=== PATIENT | female | born 1995 | race Caucasian/White ===

== ENCOUNTER 2021-12-28 16:03 | Emergency (ER) | payer OTHER, SELFPAY ==
[2021-12-28 16:15] VITALS: BP 121/63; PULSE 67; RESP 18; TEMP 36.6; O2SAT 100; BMI 32.5
[2021-12-28 17:45] LABS: HCG Quantitative /Beta subunit < 2.4 mIU/mL
[2021-12-28] MEDS: KETOROLAC 30 MG/ML VIAL 15 MG IV (18:44)
[2021-12-28] MEDS: diphenhydrAMINE 25 MG TABLET PO (18:44)
[2021-12-28] MEDS: ACETAMINOPHEN 325 MG TABLET 975 MG PO (18:44)
[2021-12-28] MEDS: DEXAMETHASONE 10 MG/ML VIAL PO (18:45)
[2021-12-28] MEDS: METOCLOPRAMIDE HCL 10 MG TABLET PO (18:49)
[2021-12-28 19:17] VITALS: BP 121/64; PULSE 75; RESP 16; O2SAT 97
--- NOTE | 2021-12-28 20:07 | ED.HA ---
HPI - Headache <JONATHAN Glasgow - Last Filed: 12/28/21 20:11> General Chief Complaint: Headache Stated Complaint: migraine,seeing black spots, 3rd day Time Seen by Provider: 12/28/21 17:48 Mode of arrival: Ambulatory History of Present Illness HPI Narrative: 25-year-old female presents to the emergency department for a migraine. Patient states that she has a history of migraines, this current migraine has lasted for 3 days, she takes sumatriptan, she states she took a p.o. sumatriptan this morning it did not help her. She denies taking any ibuprofen today or other medications. She states that she has had some black spots in her vision but this has happened before. She states that this headache is typical for her normal migraine. She states that she is trying to get , would like medication for her migraine but wants to ensure that she is . She denies any weakness, incontinence, neck pain, fever, or any other symptom. Related Data Allergies Allergy/AdvReac Type Severity Reaction Status Date / Time Penicillins Allergy Severe Anaphylaxis Verified 12/28/21 16:18 Review of Systems <JONATHAN Glasgow - Last Filed: 12/28/21 20:11> Review of Systems Narrative: General: denies fever, chills, malaise, sweats, fatigue Head/Neck: Endorses headache, denies neck pain, dizziness Eyes: denies visual changes, eye pain Cardio: denies chest pain, palpitations, edema Respiratory: denies dyspnea, cough, orthopnea GI: denies abdominal pain, nausea, vomiting, or diarrhea : denies dysuria, hematuria, urinary retention, frequency or incontinence MSK: denies joint pain, muscle weakness Skin: denies rash, itching, skin lesions or other Neuro: denies numbness, tingling Patient History <JONATHAN Glasgow - Last Filed: 12/28/21 20:11> Social History Smoking Status: Never smoker Smoking Status: Never smoker alcohol intake frequency: a few times a month Substance Use Type: marijuana Exam <JONATHAN Glasgow - Last Filed: 12/28/21 20:11> Narrative Exam Narrative: Independently reviewed vitals signs and nursing notes. General: cooperative, comfortable, in no acute distress, well developed and well groomed Head: atraumatic, symmetrical facial expressions Neck: supple, atraumatic, without lymphadenopathy. Eyes: pupils equal round and reactive, EOMI, conjunctiva normal Nose: nares patent, no rhinorrhea Mouth/Throat: moist mucus membranes Cardiovascular: regular rate and rhythm, no peripheral edema, warm extremities Respiratory: normal effort, able to speak in complete sentences, no audible wheezing, stridor, or rales. No retractions or tachypnea. MSK: moves all extremities, ambulatory w/steady gait, neurovascularly intact, no weakness Skin: brisk capillary refill, no rash, no erythema Neuro: normal speech and cognition, A&O x3, normal tone Psych: mental status is grossly normal, congruent mood, normal affect, pleasant and cooperative Initial Vital Signs Initial Vital Signs: Vital Signs Temperature 97.8 F 12/28/21 16:15 Pulse Rate 67 12/28/21 16:15 Respiratory Rate 18 12/28/21 16:15 Blood Pressure 121/63 12/28/21 16:15 Pulse Oximetry 100 12/28/21 16:15 <Regine Rosa DO - Last Filed: 12/29/21 06:58> Initial Vital Signs Initial Vital Signs: Vital Signs Temperature 97.8 F 12/28/21 16:15 Pulse Rate 67 12/28/21 16:15 Respiratory Rate 18 12/28/21 16:15 Blood Pressure 121/63 12/28/21 16:15 Pulse Oximetry 100 12/28/21 16:15 Course <JONATHAN Glasgow - Last Filed: 12/28/21 20:11> Orders Ordered: Discontinued Medications Acetaminophen (Acetaminophen 325 Mg Tablet) 975 mg PO NOW ONE Stop: 12/28/21 17:50 Last Admin: 12/28/21 18:44 Dose: 975 mg Documented by: AUPDIKE Dexamethasone (Dexamethasone 10 Mg/Ml Vial) 10 mg IV NOW ONE Stop: 12/28/21 17:49 Last Admin: 12/28/21 18:53 Dose: Not Given Documented by: KBROTEM Dexamethasone (Dexamethasone 10 Mg/Ml Vial) 10 mg PO NOW ONE Stop: 12/28/21 18:15 Last Admin: 12/28/21 18:45 Dose: 10 mg Documented by: ALESSANDRO Diphenhydramine HCl (Diphenhydramine 50 Mg/Ml Vial) 25 mg IV NOW ONE Stop: 12/28/21 17:49 Last Admin: 12/28/21 18:53 Dose: Not Given Documented by: ENRIKE Diphenhydramine HCl (Diphenhydramine 25 Mg Tablet) 25 mg PO NOW ONE Stop: 12/28/21 18:15 Last Admin: 12/28/21 18:44 Dose: 25 mg Documented by: ALESSANDRO Sodium Chloride (Normal Saline 0.9%) 1,000 mls @ 1,000 mls/hr IV BOLUS ONE Stop: 12/28/21 18:47 Last Admin: 12/28/21 18:45 Dose: Not Given Documented by: ALESSANDRO Ketorolac Tromethamine (Ketorolac 30 Mg/Ml Vial) 15 mg IV NOW ONE Stop: 12/28/21 17:49 Last Admin: 12/28/21 18:44 Dose: 15 mg Documented by: ALESSANDRO Metoclopramide HCl (Metoclopramide 10 Mg/2 Ml Inj) 10 mg IV NOW ONE Stop: 12/28/21 17:49 Last Admin: 12/28/21 18:53 Dose: Not Given Documented by: ENRIKE Metoclopramide HCl (Metoclopramide Hcl 10 Mg Tablet) 10 mg PO NOW ONE Stop: 12/28/21 18:15 Last Admin: 12/28/21 18:49 Dose: 10 mg Documented by: ALESSANDRO Vital Signs Vital signs: Vital Signs - 8 hr 12/28/21 16:15 12/28/21 19:17 Temperature 97.8 F Pulse Rate 67 75 Respiratory Rate 18 16 Blood Pressure 121/63 121/64 Pulse Oximetry 100 97 <Regine Rosa, - Last Filed: 12/29/21 06:58> Orders Ordered: Discontinued Medications Acetaminophen (Acetaminophen 325 Mg Tablet) 975 mg PO NOW ONE Stop: 12/28/21 17:50 Last Admin: 12/28/21 18:44 Dose: 975 mg Documented by: ALESSANDRO Dexamethasone (Dexamethasone 10 Mg/Ml Vial) 10 mg IV NOW ONE Stop: 12/28/21 17:49 Last Admin: 12/28/21 18:53 Dose: Not Given Documented by: ENRIKE Dexamethasone (Dexamethasone 10 Mg/Ml Vial) 10 mg PO NOW ONE Stop: 12/28/21 18:15 Last Admin: 12/28/21 18:45 Dose: 10 mg Documented by: ALESSANDRO Diphenhydramine HCl (Diphenhydramine 50 Mg/Ml Vial) 25 mg IV NOW ONE Stop: 12/28/21 17:49 Last Admin: 12/28/21 18:53 Dose: Not Given Documented by: ENRIKE Diphenhydramine HCl (Diphenhydramine 25 Mg Tablet) 25 mg PO NOW ONE Stop: 12/28/21 18:15 Last Admin: 12/28/21 18:44 Dose: 25 mg Documented by: ALESSANDRO Sodium Chloride (Normal Saline 0.9%) 1,000 mls @ 1,000 mls/hr IV BOLUS ONE Stop: 12/28/21 18:47 Last Admin: 12/28/21 18:45 Dose: Not Given Documented by: ALESSANDRO Ketorolac Tromethamine (Ketorolac 30 Mg/Ml Vial) 15 mg IV NOW ONE Stop: 12/28/21 17:49 Last Admin: 12/28/21 18:44 Dose: 15 mg Documented by: ALESSANDRO Metoclopramide HCl (Metoclopramide 10 Mg/2 Ml Inj) 10 mg IV NOW ONE Stop: 12/28/21 17:49 Last Admin: 12/28/21 18:53 Dose: Not Given Documented by: ENRIKE Metoclopramide HCl (Metoclopramide Hcl 10 Mg Tablet) 10 mg PO NOW ONE Stop: 12/28/21 18:15 Last Admin: 12/28/21 18:49 Dose: 10 mg Documented by: ALESSANDRO Vital Signs Vital signs: Vital Signs - 8 hr 12/28/21 16:15 12/28/21 19:17 Temperature 97.8 F Pulse Rate 67 75 Respiratory Rate 18 16 Blood Pressure 121/63 121/64 Pulse Oximetry 100 97 MDM - Headache <JONATHAN Glasgow - Last Filed: 12/28/21 20:11> Lab Data Labs: Lab Results 12/28/21 Range/Units 16:51 HCG, Quant < 2.4 mIU/mL Point of Care Testing Test Results Negative MDM Narrative Medical decision making narrative: This is a 25-year-old female with a history of migraines who presents To the emergency department for a migraine and concern for . She states that this is typical for her migraines, she is use 4 doses of her p.o. sumatriptan at home over the last 10 days. She has had a migraine for the last 3 days, today with some black spots in her vision but this is happened her before. Patient states that she takes Wellbutrin, magnesium, and sumatriptan for her migraines. Today her urine was negative, patient wanted an hCG quant because she states she is trying to get , hCG quant was less than 2.4. Patient refused an IV and IV fluids for her migraine treatment. She was given IM Toradol, p.o. Reglan, dexamethasone, Benadryl, and Tylenol. She states that this is adequate to help her symptoms and is requesting discharge. Headache considerations include, but not limited to: Subarachnoid hemorrhage, but unlikely as patient denies sudden onset of pain, not worst of life, or neck pain Meningitis considered, but thought unlikely given lack of Brudzinski's, Kernig's sign, altered mental status or fever Giant cell arteritis considered, but thought unlikely given lack of unilateral findings, pain in buddhist, vision change HTN Emergency considered, but thought unlikely given normal vitals Other serious diagnoses considered unlikely given lack of red flag findings such as sudden onset, increasing frequency, immunocompromise, systemic signs (fever, chills, stiff neck, or rash), focal neurologic findings, trauma, blood thinners, etc. Patient understands to follow-up with her primary care provider about her migraines, states that this is not an abnormal occurrence for her. Patient is appropriate and amenable to discharge home. Vital signs are stable on repeat examination is unremarkable. Patient has been informed of results. Patient has been given strict return to ER precautions for any new or worsening symptoms. Patient understands to follow up closely with outpatient providers as instructed. Patient understands plan and agrees to discharge home. All questions and concerns answered at this time. <Regine Rosa, DO - Last Filed: 12/29/21 06:58> Lab Data Labs: Lab Results 12/28/21 Range/Units 16:51 HCG, Quant < 2.4 mIU/mL Point of Care Testing Test Results Negative Discharge Plan Departure Patient Disposition: Home Clinical Impression: Migraine Instructions: DI for Migraine Activity Restrictions/Additional Instructions: *You have been diagnosed with migraine headache. Please take your regularly scheduled medications, try to stay hydrated, take a multivitamin, try not to drink purely water, please consider electrolyte liquids as well. Eat a diet with a variety of foods so that you get all of your nutrients. Please take Tylenol or ibuprofen as needed for ongoing headache, you can add on your migraine medication if needed tomorrow. I hope that you start feeling better, if you are still having a migraine, please follow-up with your primary care provider. Thank you for trusting us with your care. *What to do: *Please continue to take your regular medications as directed. [ ] New medication prescriptions sent to your pharmacy: [ ] [ ] New medication written as a paper prescription [x ] No new medications given *Please follow up with your primary care provider in 2-3 days, call for an appointment. Let them know you were seen in the Emergency Department and that we asked that you be seen for follow-up. We will electronically transmit a record of today's note if your PCP is in our system *If you do not have a primary care provider please contact [phone] to establish care with one of [facility] primary care providers. *Return to Emergency Department if you should have any new, worsening or concerning symptoms, such as [fever greater than 101F, chills, worsening pain, persistent vomiting or other bothersome symptoms] Referrals: Mayelin Mancini MD [Primary Care Provider] - <Regine Rosa DO - Last Filed: 12/29/21 06:58> [facility] Elanature Attestation: I was immediately available in the department for consultation. Documentation has been reviewed. I agree with assessment and plan.
== END 2021-12-28 19:17 | disposition home or self-care (01) ==
PROVIDERS: Emergency Provider Nurse Practitioner Critical Care Medicine; PCP Internal Medicine
DX: G43.909 Migraine, unspecified, not intractable, without status migrainosus (principal)
CPT/HCPCS: 36415; 81025; 84702; 96374; 99283; 99284; J1100; J1885

== ENCOUNTER 2022-05-07 08:33 | Emergency (ER) | payer OTHER, SELFPAY ==
--- NOTE | 2022-05-07 08:44 | DI.US.S_ITS ---
PROCEDURE: US OB LIMITED INDICATIONS: BLEEDING OUTSIDE/PRIOR DATING DATA: Last menstrual period (LMP): 12/30/2019. LMP-based estimated date of delivery (MEGAN): 10/05/2022. First dating scan (date and location): Unavailable. Estimated date of delivery (MEGAN) from first dating scan: Unavailable. The calculations are made using the LMP MEGAN of 10/05/2022. TECHNIQUE: Real-time scanning was performed of the fetus, with image documentation. Endovaginal scanning: Not performed COMPARISON: None. FINDINGS: A single living intrauterine gestation is present. Presentation: Breech. Placenta: Placental position is anterior and fundal, without previa. Amniotic fluid index: 16.7 cm, normal range is 5-24 cm. Single deepest vertical pocket is 5.8 cm. heart rate: 153 beats per minute. Maternal cervical canal: 3.2 cm long. Normal lower limit is 2.5 cm. Clinically estimated gestational age: Not calculated Estimated gestational age from LMP: 18 weeks 3 days. IMPRESSION: Living 2nd trimester intrauterine with no sonographic evidence of complications. Limited imaging obtained for viability and evaluation for possible causes of bleeding. Dictated by: Dom Gutierrez M.D. on 05/07/2022 at 9:59 Approved by: Dom Gutierrez M.D. on 05/07/2022 at 10:02
[2022-05-07 08:51] VITALS: BP 115/82; PULSE 82; RESP 16; TEMP 36.9; O2SAT 99; BMI 32.2
[2022-05-07 08:55] LABS: Add Manual Diff / Slide Review NO; Basophils Absolute Auto 0 /uL (0-100); Basophils Percent Auto 0.3 % (0-2); Eosinophils Absolute Auto 100 /uL (0-450); Eosinophils Percent Auto 0.9 % (2-4); Hematocrit 33.4 % (36-46); Hemoglobin 11.7 g/dL (12.0-16.0); Lymphocytes Absolute Auto 1700 /uL (1100-4500); Lymphocytes Percent Auto 22.9 % (25-40); Mean Corpuscular HGB Conc 34.9 % (30-36); Mean Corpuscular Hemoglobin 30.1 PG (26-34); Mean Corpuscular Volume 86.2 fL (80-100); Monocytes Absolute Auto 500 /uL (0-900); Monocytes Percent Auto 6.6 % (3-14); Neutrophils Absolute Auto 5300 /uL (1500-7000); Neutrophils Percent Auto 69.3 % (50-75); Platelet Count 181 X10^3/uL (150-400); Red Blood Cell Count 3.87 X10^6/uL (4.0-5.2); Red Cell Distribution Width 13.2 % (11.6-14.8); White Blood Cell Count 7.6 X10^3/uL (4.5-11.0)
--- NOTE | 2022-05-07 09:04 | ED_ITS ---
HPI - General Chief complaint: OB/Uterine Contractions Stated complaint: 19 wks , Severe ABD pain Time Seen by Provider: 05/07/22 08:44 History of Present Illness HPI Narrative: Patient is a 26-year-old female currently 19 weeks presenting with lower abdominal pain and some vaginal bleeding. 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 She states she has previously had placenta previa she has had multiple miscarriages but nothing later than 10 weeks. She reports no placenta previa during this . She has been feeling nauseous is but no significant vomiting. Pain is more on the right side but actually radiate or around to the left. She noted some brown bloody discharge is and has had to change her pad twice. Related Data Allergies Allergy/AdvReac Type Severity Reaction Status Date / Time Penicillins Allergy Severe Anaphylaxis Verified 12/28/21 16:18 Review of Systems Review of Systems Narrative: GENERAL: Denies chills, fatigue, malaise, fever, sweats, travel HEENT: Denies sinus pain, ear pain, sore throat, difficulty swallowing, neck pain RESPIRATORY: Denies dyspnea, cough, wheezing, hemoptysis, sputum. CARDIOVASCULAR: Denies chest pain, palpitations, orthopnea, edema GASTROINTESTINAL: Denies nausea, vomiting, abdominal pain, diarrhea, constipation, melena. : Denies dysuria, frequency, incontinence, hematuria, urinary retention, flank pain. 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 12 point review of systems is negative except for those stated above and HPI Exam Initial Vital Signs Initial Vital Signs: Vital Signs Temperature 98.4 F 05/07/22 08:51 Pulse Rate 82 05/07/22 08:51 Respiratory Rate 16 05/07/22 08:51 Blood Pressure 115/82 05/07/22 08:51 Pulse Oximetry 99 05/07/22 08:51 Oxygen Delivery Method 05/07/22 08:51 GENERAL: Alert 26-year-old female and in no acute distress. HEENT: Head atraumatic,EOMI, pupils reactive, face symmetric, moist mucous membranes CARDIOVASCULAR: Regular rate and rhythm without murmurs, rubs or gallops. RESPIRATORY: Breath sounds equal bilaterally, no wheezes rales or rhonchi. ABDOMEN: Soft, that tender lower abdomen more than left : No CVA tenderness EXTREMITIES: Normal range of motion, no clubbing or edema. Neurovascularly intact NEUROLOGICAL: Alert and oriented x4. SKIN: Warm, dry, no laceration, no petechiae, no rashes or lesions. Course Orders Ordered: ED Orders 05/07/22 08:44 US OB limited Stat 05/07/22 08:48 ABO RH Type Stat CBC Auto Diff [Complete Blood Count AUTO DIFF] Stat CMP [Comprehensive Metabolic Panel] Stat Discontinued Medications Acetaminophen (Acetaminophen 325 Mg Tablet) 975 mg PO NOW ONE Stop: 05/07/22 08:45 Last Admin: 05/07/22 09:15 Dose: 975 mg Documented By: DL Sodium Chloride (Normal Saline 0.9%) 1,000 mls @ 1,000 mls/hr IV BOLUS ONE Stop: 05/07/22 09:43 Last Admin: 05/07/22 09:16 Dose: 1,000 mls/hr Documented By: DL Ondansetron HCl (Ondansetron 4 Mg/2 Ml Inj) 4 mg IV NOW ONE Stop: 05/07/22 08:45 Last Admin: 05/07/22 09:15 Dose: 4 mg Documented By: DL Vital Signs Vital signs: Vital Signs - 8 hr 05/07/22 08:51 05/07/22 10:20 Temperature 98.4 F Pulse Rate 82 58 L Respiratory Rate 16 12 Blood Pressure 115/82 105/54 L Pulse Oximetry 99 99 Oxygen Delivery Method Room Air Room Air MDM - OB/Uterine Contractions Lab Data Result diagrams: 05/07/22 08:48 05/07/22 08:48 Labs: Lab Results 05/07/22 05/07/22 05/07/22 Range/Units 08:48 08:48 08:48 WBC 7.6 (4.5-11.0) X10^3/uL RBC 3.87 L (4.0-5.2) X10^6/uL Hgb 11.7 L (12.0-16.0) g/dL Hct 33.4 L (36-46) % MCV 86.2 (80-100) fL MCH 30.1 (26-34) PG MCHC 34.9 (30-36) % RDW 13.2 (11.6-14.8) % Plt Count 181 (150-400) X10^3/uL Neut % (Auto) 69.3 (50-75) % Lymph % (Auto) 22.9 L (25-40) % [place] % (Auto) 6.6 (3-14) % Eos % (Auto) 0.9 L (2-4) % Baso % (Auto) 0.3 (0-2) % Neut # (Auto) 5300 (9078-1308) /uL Lymph # (Auto) 1700 (8599-3843) /uL [place] # (Auto) 500 (0-900) /uL Eos # (Auto) 100 (0-450) /uL Baso # (Auto) 0 (0-100) /uL Sodium 135 L (137-145) mmol/L Potassium 3.9 (3.4-5.1) mmol/L Chloride 107 (98-107) mmol/L Carbon Dioxide 22 (22-32) mmol/L BUN 9 (7-17) mg/dL Creatinine 0.54 (0.52-1.04) mg/dL Estimated GFR > 60 (>60) mL/min BUN/Creatinine Ratio 16.7 (6-22) Glucose 86 (70-100) mg/dL Calcium 8.7 (8.4-10.2) mg/dL Total Bilirubin 0.3 (0.2-1.3) mg/dL AST 16 (14-36) IU/L ALT 11 (<35) IU/L Alkaline Phosphatase 41 (38-126) U/L Total Protein 7.1 (6.3-8.2) g/dL Albumin 3.9 (3.5-5.0) g/dL Globulin 3.2 (1.7-4.1) g/dL Albumin/Globulin Ratio 1.2 (1.0-2.8) Blood Type A Positive Urine Dip Bedside Urine Glucose Negative Bedside Urine Bilirubin - Negative Bedside Urine Ketone - Negative Urine Specific [facility] 1.03 Bedside Urine Occult Blood - Negative Bedside Urine pH 6.0 Bedside Urine Protein - Negative Bedside Urine Urobilinogen - Negative Bedside Urine Nitrite - Negative Bedside Urine Leukocytes - Negative Esterase Imaging Data US - OB: Radiologist's Impression: Signed Patient: Randa Olivares MR#: [id number] : 1995 Acct:[id number] Age/Sex: 26 / F Date of Service: 05/07/22 Loc: Accession Number: [id number] ?? Procedure: US OB limited Ordering Provider: Regine Rosa D.O. PROCEDURE:? US OB LIMITED ? INDICATIONS:? BLEEDING ? OUTSIDE/PRIOR DATING DATA:? Last menstrual period (LMP):? 12/30/2019.? LMP-based estimated date of delivery (MEGAN):? 10/05/2022.? First dating scan (date and location):? Unavailable.? Estimated date of delivery (MEGAN) from first dating scan:? Unavailable. The calculations are made using the LMP MEGAN of 10/05/2022.? ? TECHNIQUE: Real-time scanning was performed of the fetus, with image documentation.? Endovaginal scanning:? Not performed ? COMPARISON:? None. ? FINDINGS:? A single living intrauterine gestation is present.? Presentation:? Breech.? Placenta:? Placental position is anterior and fundal, without previa.? ? Amniotic fluid index:? 16.7 cm, normal range is 5-24 cm. Single deepest vertical pocket is 5.8 cm.? ? heart rate:? 153 beats per minute.? Maternal cervical canal:? 3.2 cm long.? Normal lower limit is 2.5 cm.? Clinically estimated gestational age:? Not calculated Estimated gestational age from LMP:? 18 weeks 3 days.? ? ? IMPRESSION:? Living 2nd trimester intrauterine with no sonographic evidence of complications.? Limited imaging obtained for viability and evaluation for possible causes of bleeding. ? ? Dictated by: Dom Gutierrez M.D. on 05/07/2022 at 9:59 ? ? MDM Narrative Medical decision making narrative: Patient is currently 18 weeks and 3 days with some slight vaginal bleeding. She denies any recent intercourse. Urine is negative for any infection. Ultrasound confirms healthy IUP. At this time recommend outpatient follow-up with her OBGYN. She is also Rh positive no need for RhoGAM.. Discharge Plan Departure Patient Disposition: Home Clinical Impression: Hemorrhage Instructions: DI for Vaginal Bleeding During Activity Restrictions/Additional Instructions: *You have been diagnosed with 2nd trimester bleeding measuring 18 weeks and 3 days *What to do: At this time baby appears healthy. Blood work is reassuring no sign of infection. Please follow-up with your OBGYN *Continue to take medications as directed *Follow up with your primary care provider in 2-3 days or call [phone] Call your OBGYN tomorrow *Return to ER if you should have bright red blood, clots abdominal cramping, or any new, worsening or concerning symptoms Referrals: Mayelin Mancini MD [Primary Care Provider] - Visit Report Forms: Patient Portal/API
[2022-05-07 09:07] LABS: Alanine Aminotransferase 11 IU/L (<35); Albumin 3.9 g/dL (3.5-5.0); Albumin Globulin Ratio 1.2 (1.0-2.8); Alkaline Phosphatase 41 U/L (38-126); Aspartate Aminotransferase 16 IU/L (14-36); BUN Creatinine Ratio 16.7 (6-22); Bilirubin Total 0.3 mg/dL (0.2-1.3); Blood Urea Nitrogen 9 mg/dL (7-17); Calcium 8.7 mg/dL (8.4-10.2); Carbon Dioxide 22 mmol/L (22-32); Chloride 107 mmol/L (98-107); Estimated Glomerular Filt Rate > 60 mL/min (>60); Globulin 3.2 g/dL (1.7-4.1); Glucose 86 mg/dL (70-100); HEMOLYSIS < 15 (0-50); Potassium 3.9 mmol/L (3.4-5.1); Sodium 135 mmol/L (137-145); Total Protein 7.1 g/dL (6.3-8.2)
[2022-05-07] MEDS: ONDANSETRON 4 MG/2 ML INJ IV (09:15)
[2022-05-07] MEDS: ACETAMINOPHEN 325 MG TABLET 975 MG PO (09:15)
[2022-05-07] MEDS: SODIUM CHLORIDE 0.9% 1,000 ML 1000 ML IV (09:16)
[2022-05-07 10:20] VITALS: BP 105/54; PULSE 58; RESP 12; O2SAT 99
== END 2022-05-07 10:22 | disposition home or self-care (01) ==
PROVIDERS: Emergency Provider Emergency Medicine; PCP Internal Medicine
DX: O46.92 Antepartum hemorrhage, unspecified, second trimester (principal); Z3A.18 18 weeks gestation of pregnancy
CPT/HCPCS: 36415; 76815; 80053; 81003; 85025; 86900; 86901; 96374; 99284; J2405

== ENCOUNTER 2022-07-15 18:23 | Outpatient (CLI) | payer OTHER, SELFPAY ==
--- NOTE | 2022-07-16 16:18 | PM.OBTRLD ---
Visit Information Visit Information Date of evaluation: 07/15/22 On-call OB Provider: Gabrielle Scott Reason for Evaluation: Yes other Comments/Additional reasons for admission: Patient is a 26-year-old 6 para 2 at 28-,2/7 weeks gestation Elevated blood pressure at home Patient's primary OB is in [place]. Vital Signs Vital Signs: Pressure 107/70 PFSH Social History Smoking Status: Never smoker Evaluation Evaluation Baseline heart rate: 140 Variability: Moderate (11-25) monitor accelerations: Present Monitor Decelerations: Absent Category of Tracing: Reactive Diagnosis, Plan/Disposition Plan/Disposition Plan: Assessment: 26-year-old 6 para 2 at 28-,2/7 weeks gestation Elevated BP at home, normal here Reactive NST Plan: F/U with regular ob as scheduled OB Disposition: home
== END 2022-07-15 19:05 | disposition home or self-care (01) ==
LOC: OB 07-17 08:53
PROVIDERS: PCP Internal Medicine; Referring Provider Obstetrics & Gynecology; Visit Provider Obstetrics & Gynecology
DX: O26.893 Other specified pregnancy related conditions, third trimester (principal); R03.0 Elevated blood-pressure reading, without diagnosis of hypertension; Z3A.28 28 weeks gestation of pregnancy
CPT/HCPCS: 59025; G0378; G0379

== ENCOUNTER 2022-08-11 09:39 | Observation (INO) | payer OTHER, SELFPAY ==
--- NOTE | 2022-08-11 10:03 | P.TNLD_ITS ---
Visit Information Visit Information Date of evaluation: 08/11/22 On-call OB Provider: Danay Nash Reason for Evaluation: Yes non-stress test non-stress test reason: other (Spotting) Vital Signs Vital Signs: Temperature 37.0 blood pressure 118/66 heart rate 109 PFSH Social History Smoking Status: Never smoker Evaluation Evaluation Baseline heart rate: 130 Variability: Moderate (11-25) monitor accelerations: Present Monitor Decelerations: Absent Category of Tracing: Reactive Diagnosis, Plan/Disposition Final Diagnosis (1) 32 weeks gestation of : Status: Acute (2) UTI in : Status: Acute (3) Vaginal bleeding during : Status: Acute Plan/Disposition Plan: 26-year-old at 32 weeks' gestation presenting after 1 episode of spotting when she woke this morning. She had dark blood on her underwear about the size of two quarters. Bleeding has not continued. She is not had intercourse recently. Denies urinary symptoms. She has had some low back pain which is unchanged from baseline. Denies contractions or leaking and reports good movement. Obstetric care is in [place]. NST reactive. UA suspicious for UTI. Will treat with Macrobid and sent for culture. Ultrasound performed today which was reassuring without placenta previa or abruption. Cervix is long and amniotic fluid normal. Follow-up with primary OB. OB Disposition: home
[2022-08-11 11:36] LABS: Appearance Urine UA CLEAR; Bilirubin Urine UA NEGATIVE (NEGATIVE); Color Urine UA YELLOW; Glucose Urine UA NEGATIVE (Negative); Ketones Urine UA 1+ (NEGATIVE); Leukocyte Esterase Urine UA TRACE (NEGATIVE); Nitrite Urine UA NEGATIVE (Negative); Occult Blood Urine UA TRACE-LYSED (Negative); Protein Urine UA 1+ (Negative); Specific Gravity Urine UA >=1.030 (1.000-1.035); Urobilinogen Urine UA 0.2 E.U./dL (0.2)
[2022-08-11 11:37] LABS: RBC Urine 1-5/HPF (0-5/HPF); WBC Urine 5-10/HPF (0-5/HPF)
[2022-08-11 11:38] LABS: Amorphous Sediment Urine 1+; Bacteria Urine Many (>30); Culture Indicated Urine Specimen Cultured; Squamous Epithelial Cell Urine >30 /HPF (0-5/HPF)
--- NOTE | 2022-08-11 12:03 | DI.US.S_ITS ---
PROCEDURE: US OB LIMITED INDICATIONS: bleeding OUTSIDE/PRIOR DATING DATA: Last menstrual period (LMP): 12/29/21 LMP-based estimated date of delivery (MEGAN): 10/05/22. First dating scan (date and location): 05/07/22. Estimated date of delivery (MEGAN) from first dating scan: 10/05/22. The calculations are made using the 1st OB ultrasound MEGAN of 10/05/22. TECHNIQUE: Real-time scanning was performed of the fetus, with image documentation and biometric measurements. Endovaginal scanning: Not performed. COMPARISON: [facility], OB LIMITED, 05/07/2022, 9:08. FINDINGS: General: A single living intrauterine gestation is present. Presentation: Vertex. Placenta: Placental position is right anterior , without previa. Lower placental edge 2 cm or less from internal cervical os qualifies as low lying placenta. Amniotic fluid index: 12.3 cm, normal range is 5-24 cm. Single deepest vertical pocket is 4.4 cm. heart rate: 133 beats per minute. Maternal cervical canal: 3.1 cm long. Normal lower limit is 2.5 cm. Report any funneling of internal cervical os: % of canal length, shape (U or V), width or any U-shaped funneling. biometrics: Biparietal diameter: 8.0 cm, 32 weeks 1 day Head circumference: 30.0 cm, 33 weeks 2 days Abdominal circumference: 27.6 cm, 31 weeks 5 days Femur length: 6.3 cm, 32 weeks 3 days Clinically estimated gestational age: 32 weeks 1 day Composite gestational age from present scan: 32 weeks 3 days Estimated weight and percentile: 1908 g, 38th percentile Other: Not applicable. IMPRESSION: Appropriate interval growth, no sign of placenta previa or placental abruption. We strive to produce accurate, complete, and clear reports of imaging services. To assist us in improving patient care, this report was composed using standard report templates and voice recognition software. Therefore, it may contain abnormal punctuation, insertions and/or omissions. Occasional wrong-word or sound-alike substitutions may occur. Though we review the report and make efforts to correct it, we do recommend that the report be read carefully in proper context to recognize any text inaccuracies. Dictated by: Jonathan Meza M.D. on 08/11/2022 at 13:31 Approved by: Jonathan Meza M.D. on 08/11/2022 at 13:35
[2022-08-11] MEDS: NITROFURANTOIN ER 100 MG CAPSULE PO (12:43)
== END 2022-08-11 12:47 | disposition home or self-care (01) ==
PROVIDERS: Admitting Provider Family Medicine; PCP Internal Medicine; Referring Provider Family Medicine; Visit Provider Family Medicine
DX: O26.853 Spotting complicating pregnancy, third trimester (principal); O23.43 Unspecified infection of urinary tract in pregnancy, third trimester; N39.0 Urinary tract infection, site not specified; Z3A.32 32 weeks gestation of pregnancy
CPT/HCPCS: 59025; 76815; 81001; 87086; G0378; G0379

== ENCOUNTER 2022-09-21 02:32 | Inpatient (IN) | payer OTHER, SELFPAY ==
--- NOTE | 2022-09-21 03:04 | P.HPOB_ITS ---
OB HPI Date/Time Date of admission: 09/21/22 Date Patient Seen: 09/21/22 Time Patient Seen: 03:04 History of Present Condition Chief complaint: LABOR Date of Last Menstrual Period: 12/29/21 Estimated Gestational Age (weeks): 38 : 7 Para: 2 care: good care Dating criteria OB: LMP confirmed by 1st trimester US Obstetrical complications: none Medical complications OB: psychiatric (depression, managed with counseling) External History Prior Pregnancies: SVDx2, Sab x4 : 7 Para: 2 Estimated Date of Delivery: 10/05/22 Narrative: 26 yo presents @ EG 38weeks 0 days reporting regular painful contractions. She received routine care in [place]. She awoke this morning with painful regular contractions and started heading to the hospital but contractions were very frequent and uncomfortable and she felt she would not make it to the hospital and came here since with living in [place], our hospital was closer. She reports that she had a fall to her abdomen 3 days ago on 09/18 and was observed for 24 hours overnight. Patient signed to obtain her medical records. Review of medical and obstetrical history with patient and review of records. has essentially been uncomplicated. She did have the recent fall. In early she had nausea and vomiting and was on antiemetics. She has a history of anxiety and depression, was on Wellbutrin prior to but stopped with . Had depression after her 1st b annalee. Per records, she did have increased depression during this with EPDS score 17. Symptoms were managed with counseling, with patient preferring to stay off medication. She has had anemia ; recently received an iron infusion for hemoglobin 10.1. She had an abnormal 1 hour Glucola. She was unable to attend a 3 hour GTT. Ten days of recording FBS and 2 hour postprandials revealed normal blood glucose levels. Preadmission Labs Last OB Lab Results: Blood Type A Positive 09/21/22 03:06 Antibody Screen Negative 09/21/22 03:06 Hematocrit 28.9 % (36-46) L 09/21/22 03:06 Hemoglobin 9.6 g/dL (12.0-16.0) L 09/21/22 03:06 -: PAP smear: Normal (06/2020) External Labs Blood type OB HPI: A (+) positive -: Antibody screen: negative, HBsAG: negative, HIV: negative, RPR/VDLR: negative, Chlamydia screen: negative, Gonorrhea screen: negative and GBS status: negative -: Rubella: immune HCAB: negative Genetic Screens: Sequential screen: Normal Evaluation Evaluation Baseline heart rate: 120 Variability: Average (6-10) monitor accelerations: Absent Monitor Decelerations: Absent Contraction Frequency (minutes): 2 Uterine Contraction Intensity: Strong/Firm Category of Tracing: Non-reactive Status: Category l Dilation (cm): 5 Effacement (%): 90 Comments: repeat exam by me 30 minutes later due to report of vaginal pressure: /-3, bulgin membranes PFSH Medical History (Updated 09/21/22 @ 06:37 by Leslie Mcguire MD) Anxiety and depression History of PCOS Surgical History (Updated 09/21/22 @ 06:37 by Leslie Mcguire MD) Hx of laparoscopy Social History Smoking Status: Never smoker Meds Home Medications and Allergies Home Medications Medication Instructions Recorded Confirmed Type nitrofurantoin 100 mg PO BID #9 caps 08/11/22 Rx monohydrate/macrocrystals 100 mg capsule (Macrobid) Elemental Iron-90 324 mg PO DAILY 09/21/22 09/21/22 History promethazine 25 mg tablet 25 mg PO 09/21/22 History sumatriptan succinate 6 mg/0.5 mL mg SUBCUT 09/21/22 History subcutaneous pen injector Allergies Allergy/AdvReac Type Severity Reaction Status Date / Time Penicillins Allergy Severe Anaphylaxis Verified 12/28/21 16:18 OB Exam HENMT Head: normal to inspection and normocephalic Resp Effort & Inspection: normal respiratory effort and able to speak in complete sentences Cardio Rate: regular rate Extremities Lower extremity: Yes normal to inspection; No edema Presentation: vertex Objective Labs Result Diagrams: 09/21/22 03:06 Assessment and Plan Assessment and Plan Assessment and Plan narrative: 26 yo presents in active labor with uncomfortable contractions with cervical change. No ruptured membranes. Reports GBS negative screen. Has history of hemorrhage with prior delivery. -Admit - medical records obtained,reviewed - IV placed in routine CBC, type and screen ordered. -Desires natural childbirth, declines any pain medication at this time. Presents with senior computer specialist an S/O accompanying her. -Anticipate - history of PPH, will have Pitocin ready in the room and PPH medication box. Time Spent with Patient Total time spent with greater than 50% in coordination of care (as documented) at patient's floor/unit and/or counseling patient:: Greater than 35 minutes
[2022-09-21 03:28] LABS: Add Manual Diff / Slide Review NO; Basophils Absolute Auto 0 /uL (0-100); Basophils Percent Auto 0.1 % (0-2); Eosinophils Absolute Auto 0 /uL (0-450); Eosinophils Percent Auto 0.5 % (2-4); Hematocrit 28.9 % (36-46); Hemoglobin 9.6 g/dL (12.0-16.0); Lymphocytes Absolute Auto 1700 /uL (1100-4500); Lymphocytes Percent Auto 22.7 % (25-40); Mean Corpuscular HGB Conc 33.1 % (30-36); Mean Corpuscular Hemoglobin 27.7 PG (26-34); Mean Corpuscular Volume 83.6 fL (80-100); Monocytes Absolute Auto 600 /uL (0-900); Monocytes Percent Auto 7.4 % (3-14); Neutrophils Absolute Auto 5300 /uL (1500-7000); Neutrophils Percent Auto 69.3 % (50-75); Platelet Count 158 X10^3/uL (150-400); Red Blood Cell Count 3.46 X10^6/uL (4.0-5.2); Red Cell Distribution Width 14.8 % (11.6-14.8); White Blood Cell Count 7.7 X10^3/uL (4.5-11.0)
[2022-09-21 03:37] LABS: COVID19 -Nasal RAPID Negative (Negative)
--- NOTE | 2022-09-21 04:22 | P.PCNOB_ITS ---
Labor & Delivery Delivery date: 09/21/22 Intrapartal Events: Precipitous Labor < 3 hours Cervical ripening method: none Induction method: none Delivery monitor: external FHT and external uterine Route of delivery: Episiotomy description: None L&D Laceration Description: None Estimated blood loss (mL): 400 Anesthesia Type: None Complications: none Narrative: over an intact perineum. Placenta delivered spontaneously, was intact and had a normal appearing three-vessel cord. She had no perineal or vaginal lacerations. Pt presented with frequent uncomfortable contractions, in active labor. She only desired intermittent FHR auscultation which was done after short EFM tracing obtained showing normal FHR variability and no decelerations.reassuring. At 7 cm she had spontaneous rupture membranes and quickly progressed to compl etely dilated. With 1 push she brought the head through the labia. Bed was thus not broken at this point. She continued to push with the contraction Bringing the head to and head was delivered in a controlled fashion. No nuchal cord was present. With pushing the shoulders did not deliver with ease. Patient's legs placed back in to make Gl[place] position. Anterior shoulder still did not deliver with mild traction with maternal pushing effort. At this time with maternal pushing, Rehman corkscrew maneuver performed and shoulders and infant delivered without difficulty. Mild shoulder dystocia, approximate 1 minute from delivery of head to delivery of infant. A vigorous male was placed on the maternal abdomen. About 1 minute after delivery, placenta gave signs of placental separation with a gush of blood. I recommended proceeding with clamping and cutting cord at this time. Patient had desired to waiting until pulsation stopped. She agreed and cord was clamped and cut. Placenta was not fully at this time but approximately 1 minute later did fully separate and delivered with maternal pushing. She only had a light amount of bleeding after delivery of the placenta. Routine IV Pitocin was started. her bleeding remained light. On inspection she had no obstetrical lacerations, the perineum, vagina, periurethral areas were intact. The cervix palpated to be intact. She was left to recover in good condition. She did have some lightheadedness after delivery but her blood loss had been average. Some routine IV fluids were started, but lightheadedness was felt to be due to using nitrous oxide for labor analgesia and with last few minutes prior to delivery, she was using more frequently and after the contraction due to vaginal pressure too. Her lightheadedness gradually improved. Baby 1: gender: Male Presentation: vertex Position: Right Occiput Anterior Placenta delivery description: Spontaneous Cord Vessel Description: 3 Vessels score (1 min): 9 score (5 min): 9 weight: 7 lb 14.492 oz Plan for aftercare: Routine care
[2022-09-21] MEDS: ACETAMINOPHEN 325 MG TABLET 650 MG PO ×4 (06:11→21:39)
[2022-09-21] MEDS: IBUPROFEN 600 MG TABLET PO ×4 (06:12→21:39)
[2022-09-21] MEDS: ONDANSETRON 4 MG/2 ML INJ IV (06:12)
--- NOTE | 2022-09-21 16:27 | P.PNOB_ITS ---
Subjective - OB Subjective Patient comments: other (feeling some intense uterine cramping, not fully relieved with Ibuprofen. [place] normal) [place] baby status: doing well feeding status: exclusively breast feeding Date Patient Seen: 09/21/22 Time Patient Seen: 16:27 Exam Vital Signs (past 8 hours): Temp 96.5F BP 110/76 P76 RR 17 Narrative Exam Narrative: General: Well-appearing female Abdomen: Soft, nontender, nondistended. Fundus@U, firm, nontender Extremities: Trace pedal edema Objective Labs Result Diagrams: 09/22/22 05:48 Labs: Laboratory Results - last 24 hr 09/21/22 09/21/22 09/21/22 03:06 03:06 03:06 WBC 7.7 RBC 3.46 L Hgb 9.6 L Hct 28.9 L MCV 83.6 MCH 27.7 MCHC 33.1 RDW 14.8 Plt Count 158 Neut % (Auto) 69.3 Lymph % (Auto) 22.7 L [place] % (Auto) 7.4 Eos % (Auto) 0.5 L Baso % (Auto) 0.1 Neut # (Auto) 5300 Lymph # (Auto) 1700 [place] # (Auto) 600 Eos # (Auto) 0 Baso # (Auto) 0 SARS-CoV-2 (PCR) Negative Blood Type A Positive Antibody Screen Negative Assessment & Plan Plan day: 0 plan OB: routine care Comments: PPD 1/2 Offered and will add some oxycodone due to the severe uterine cramping with this being her 3rd delivery. Time Spent With Patient Time: Total time spent is greater than 50% in coordination of care (as documented) at patient's floor/unit and/or counseling patient: Time with patient: less than 15 minutes
[2022-09-21] MEDS: OXYCODONE IR 5 MG TABLET PO ×2 (16:47→21:38)
[2022-09-21] MEDS: LANOLIN OINT 7 GM 1 APPLIC TOP (18:11)
[2022-09-22] MEDS: ACETAMINOPHEN 325 MG TABLET 650 MG PO ×2 (03:13→11:05)
[2022-09-22] MEDS: IBUPROFEN 600 MG TABLET PO ×2 (03:14→08:42)
[2022-09-22] MEDS: OXYCODONE IR 5 MG TABLET PO ×2 (03:14→08:29)
[2022-09-22 06:00] LABS: Add Manual Diff / Slide Review NO; Basophils Absolute Auto 0 /uL (0-100); Basophils Percent Auto 0.5 % (0-2); Eosinophils Absolute Auto 100 /uL (0-450); Eosinophils Percent Auto 1.4 % (2-4); Hematocrit 28.9 % (36-46); Hemoglobin 9.7 g/dL (12.0-16.0); Lymphocytes Absolute Auto 1900 /uL (1100-4500); Lymphocytes Percent Auto 21.7 % (25-40); Mean Corpuscular HGB Conc 33.5 % (30-36); Mean Corpuscular Hemoglobin 28.1 PG (26-34); Mean Corpuscular Volume 83.7 fL (80-100); Monocytes Absolute Auto 600 /uL (0-900); Monocytes Percent Auto 6.9 % (3-14); Neutrophils Absolute Auto 6100 /uL (1500-7000); Neutrophils Percent Auto 69.5 % (50-75); Platelet Count 172 X10^3/uL (150-400); Red Blood Cell Count 3.46 X10^6/uL (4.0-5.2); Red Cell Distribution Width 15.1 % (11.6-14.8); White Blood Cell Count 8.7 X10^3/uL (4.5-11.0)
[2022-09-22 08:29] VITALS: TEMP 35.8
[2022-09-22 08:42] VITALS: TEMP 35.8
--- NOTE | 2022-09-22 11:03 | P.DS_ITS ---
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 She had no rupture membranes at that time. She had received routine care in [place] with essentially an uncomplicated . She did have a fall 2 days prior with hitting to her abdomen and was monitored for over 24 hours at that time. She came to our hospital due to further distance [facility], with the uncertainty that she would make it there with the intensity of the contractions. She had spontaneous rupture membranes at 7 cm And progressed to complete. She progressed in less than 2 hours. She used nitrous oxide for analgesia. She had a spontaneous vaginal delivery over an intact perineum of a viable male infant with Apgars of 9 and 9. Infant's weight was 7 lb 15 oz . She did not have any perineal lacerations. She has had a normal course. Her bleeding after delivery was normal and she reports continued normal lochia now on day 1. Her H/ H today is the same as on admission, hemoglobin 9.7. She reports feeling well, denies any problems. She has used some oxycodone due to severe uterine cramping, consistent with multiparity and after discussion desires a few pills to continue the next 1-2 days at home. No other problems. She is without problems. She has had a normal course. Since I am finishing this week and will not be here for a visit, she prefers to follow-up with the sous chef kitchen manager she was seen in [place] for her visit, rather than see a new physician, stranger here for her visit. She is already scheduled for that visit. Peripartum Data Infant Delivery Method: Natural Vaginal Laceration Description: None Episiotomy description: None complications: none 1: Gender: Male Disposition of : home Status at Discharge Cognitive/behavioral status at discharge: oriented Functional status at discharge: independent ambulation Overall status at discharge: patient is back to baseline Time Spent with Patient Time attestation: Total time spent providing and/or coordinating discharge services: Time spent: Less than 30 minutes Objective Labs Result Diagrams: 09/22/22 05:48 Labs: Laboratory Results - last 24 hr 09/22/22 05:48 WBC 8.7 RBC 3.46 L Hgb 9.7 L Hct 28.9 L MCV 83.7 MCH 28.1 MCHC 33.5 RDW 15.1 H Plt Count 172 Neut % (Auto) 69.5 Lymph % (Auto) 21.7 L [place] % (Auto) 6.9 Eos % (Auto) 1.4 L Baso % (Auto) 0.5 Neut # (Auto) 6100 Lymph # (Auto) 1900 [place] # (Auto) 600 Eos # (Auto) 100 Baso # (Auto) 0 Exam Vital Signs (past 8 hours): - 09/22/22 08:29 09/22/22 08:42 Temperature 96.5 F L 96.5 F L Narrative Exam Narrative: General: Well-appearing female in no acute distress Abdomen soft, nontender, nondistended. Fundus is slightly tender in the midline, nontender otherwise. Fundus is firm and at U -1. Extremities: No pedal edema. Discharge Plan Discharge Plan Patient Disposition: Home Provider Discharge Comment: day 1 status post spontaneous vaginal delivery at 38 weeks status post spontaneous labor Pre-existing chronic anemia , stable Discharge orders & Medications Prescriptions: New ibuprofen 600 mg Tablet 600 mg PO Q6HR PRN (Reason: Pain, Mild (1-3)) Qty: 60 0RF oxycodone 5 mg Tablet 5 mg PO Q6H PRN (Reason: Pain, Moderate (4-6)) Qty: 6 0RF Continued Elemental Iron-90 324 mg PO DAILY famotidine 20 mg tablet 20 mg PO DIRECTED albuterol sulfate 90 mcg/actuation HFA aerosol inhaler 1 - 2 puff INHALATION DIRECTED Label Comments: INHALE 1 TO 2 PUFFS BY MOUTH EVERY 4 HOURS NEEDED sumatriptan succinate 6 mg/0.5 mL syringe 6 mg SUBCUT 2XD Label Comments: Inject 1 pen needle subcutaneously twice a day as needed for pain Discontinued nitrofurantoin monohyd/m-cryst [Macrobid] 100 mg Capsule 100 mg PO BID Qty: 9 0RF promethazine 25 mg tablet 25 mg PO DIRECTED Follow up/Referrals: Leslie Mcguire MD [Physician] - ( Keep your 6 week visit with your prior OB provider as scheduled already, per your choice after we discussed option with visit in our office with another provider ( since I am finished here this week) versus with your primary OB provider in [place]. you may call our office as well with any questions or problems after delivery or if you do desire to do a 6 week visit with us. The office number goes to an answering service for emergencies after hours at night and on weekends. ) Mayelin Mancini MD [Primary Care Provider] - Discharge Health Status Multidrug resistant organism: No MDRO Diet/Activity/Treatments Diet: Regular Activity: nothing in the vagina for 6 weeks, no tampons and no intercourse. Catheter: 2-way [place] Skin/Wound/Dressing Care Report to your healthcare provider any signs of infection, such as:: chills, f ever and increased pain Visit Report/Discharge Packet Instructions: DI for Labor and Delivery, Vaginal , DI for Depression Stand Alone Forms: Discharge: Care, Patient Portal/API Discharge Data Primary Care Provider: Mayelin Mancini
[2022-09-22 11:10] VITALS: BP 110/76; PULSE 76; RESP 17; TEMP 35.8
== END 2022-09-22 11:30 | disposition home or self-care (01) | DRG 807 ==
PROVIDERS: Admitting Provider Obstetrics & Gynecology; PCP Internal Medicine; Referring Provider Obstetrics & Gynecology; Visit Provider Obstetrics & Gynecology
DX: O99.344 Other mental disorders complicating childbirth (principal); Z37.0 Single live birth; F32.A Depression, unspecified; Z3A.38 38 weeks gestation of pregnancy; Z20.822 Contact with and (suspected) exposure to COVID-19; O62.3 Precipitate labor
CPT/HCPCS: 36415; 59050; 59409; 85025; 86850; 86900; 86901; 87635; 99222; 99238; C9803; G0379; J2405